=== PATIENT | female | born 1970 | race Caucasian/White ===

== ENCOUNTER 2020-03-09 03:22 | Inpatient (IN) ==
[2020-03-09] MEDS ORDERED: Ketorolac 30 MG/ML VIAL IVP ONE (03:39)
[2020-03-09] MEDS ORDERED: 0.9 % Sodium Chloride 1,000 ML IVC ONE (03:39)
[2020-03-09] MEDS ORDERED: Prochlorperazine 10 MG/2 ML VIAL IVP STA (03:43)
[2020-03-09 03:51] LABS: Basophils % 0.2 %; Eosinophils % 0.2 %; Hematocrit 41.5 % (35.3-44.9); Hemoglobin 12.7 g/dL (11.5-15.4); Immature Granulocytes % 0.2 % (0-4); Lymphocytes % 20.7 %; Mean Corpuscular HGB Conc 30.6 g/dL (31.6-35.5); Mean Corpuscular Hemoglobin 25.2 pg (28.0-33.3); Mean Corpuscular Volume 82.5 fL (83.0-100.0); Mean Platelet Volume 11.8 fL (9.4-12.4); Monocytes # 0.3 K/mcL (0.0-1.3); Monocytes % 6.4 %; Neutrophils # 3.6 K/mcL (1.6-8.9); Platelet Count 186 K/mcL (140-400); Red Blood Count 5.03 M/mcL (3.82-4.97); Segmented Neutrophils % 72.3 %
[2020-03-09 04:00] LABS: INR 1.2; Prothrombin Time 13.2 Seconds (9.4-12.1)
[2020-03-09 04:02] LABS: Activated Partial Thrombo Time 32.5 Seconds (26.0-36.0)
[2020-03-09 04:10] LABS: BUN/Creatinine Ratio 14 (6-26); Blood Urea Nitrogen 11 mg/dL (6-20); Calcium 8.7 mg/dL (8.6-10.3); Carbon Dioxide 27 mEq/L (23-29); Chloride 99 mEq/L (98-107); Glucose 120 mg/dL (70-105); Osmolality,Calculated 281 (280-300); Sodium 135 mEq/L (136-145); eGFR For African Americans > 60 (> 60); eGFR For Non-African Americans > 60 (> 60)
[2020-03-09 04:46] LABS: Troponin I < 0.03 ng/mL (< 0.04)
[2020-03-09] MEDS ORDERED: Azithromycin 500 MG in 0.9 % Sodium Chloride 250 ML IVPB ONE (06:39)
[2020-03-09] MEDS ORDERED: cefTRIAXone 1,000 MG in Water for inj. (sterile) 10 ML IVP ONE (06:39)
[2020-03-09] MEDS ORDERED: Ondansetron 4 MG/2 ML VIAL IVP PRN (07:05)
[2020-03-09] MEDS ORDERED: Naloxone 0.4 MG/ML INJ IVP PRN (07:05)
[2020-03-09] MEDS ORDERED: *HR* Metoprolol 5 MG/5 ML VIAL IVP PRN (08:25)
[2020-03-09] MEDS: lamoTRIgine 25 MG TABLET PO SCH (10:27)
[2020-03-09] MEDS: Ascorbic Acid 500 MG TABLET PO SCH ×2 (10:27→19:51)
[2020-03-09] MEDS: Zinc Sulfate 220 MG CAPSULE PO SCH (10:27)
[2020-03-09] MEDS ORDERED: Famotidine 20 MG/2 ML VIAL IVP SCH (12:21)
[2020-03-09] MEDS: Famotidine 20 MG/2 ML VIAL IVP SCH (13:08)
[2020-03-09] MEDS ORDERED: SUMAtriptan 6 MG/0.5 ML SQ ONE (16:17)
[2020-03-09] MEDS: Temazepam 15 MG CAPSULE PO SCH (19:51)
[2020-03-09] MEDS ORDERED: SUMAtriptan succinate 50 MG TABLET PO ONE (20:18)
[2020-03-09] MEDS: Acetaminophen 325 MG TABLET PO PRN (20:55)
[2020-03-10] MEDS: Famotidine 20 MG/2 ML VIAL IVP SCH ×3 (00:31→23:51)
[2020-03-10] MEDS: *HR* Enoxaparin 40 MG/0.4 ML SYRINGE SQ SCH (04:56)
[2020-03-10] MEDS: Acetaminophen 325 MG TABLET PO PRN ×2 (04:57→11:47)
[2020-03-10 05:17] LABS: Basophils % 0.3 %; Hematocrit 37.8 % (35.3-44.9); Hemoglobin 11.9 g/dL (11.5-15.4); Lymphocytes # 0.8 K/mcL (0.6-4.6); Lymphocytes % 22.2 %; Mean Corpuscular HGB Conc 31.5 g/dL (31.6-35.5); Mean Corpuscular Hemoglobin 25.8 pg (28.0-33.3); Mean Corpuscular Volume 81.8 fL (83.0-100.0); Mean Platelet Volume 11.3 fL (9.4-12.4); Monocytes # 0.3 K/mcL (0.0-1.3); Monocytes % 7.7 %; Neutrophils # 2.6 K/mcL (1.6-8.9); Platelet Count 153 K/mcL (140-400); Red Blood Count 4.62 M/mcL (3.82-4.97); Red Cell Distribution Width 13.6 % (11.5-14.5); Segmented Neutrophils % 69.8 %; White Blood Count 3.8 K/mcL (4.3-11.1)
[2020-03-10 05:24] LABS: BUN/Creatinine Ratio 12 (6-26); Blood Urea Nitrogen 8 mg/dL (6-20); Calcium 8.5 mg/dL (8.6-10.3); Carbon Dioxide 25 mEq/L (23-29); Chloride 102 mEq/L (98-107); Glucose 115 mg/dL (70-105); Osmolality,Calculated 277 (280-300); Potassium 3.8 mEq/L (3.5-5.1); Sodium 134 mEq/L (136-145); eGFR For African Americans > 60 (> 60); eGFR For Non-African Americans > 60 (> 60)
[2020-03-10] MEDS ORDERED: cefTRIAXone 1,000 MG in 0.9 % Sodium Chloride Mini Bag 100 ML IVPB SCH (08:00)
[2020-03-10] MEDS: Ascorbic Acid 500 MG TABLET PO SCH ×2 (08:19→20:46)
[2020-03-10] MEDS: Zinc Sulfate 220 MG CAPSULE PO SCH (08:19)
[2020-03-10] MEDS: Venlafaxine XR (24 HR) 75 MG CAP.ER.24H PO SCH (08:19)
[2020-03-10] MEDS: Bisoprolol/HCTZ 5/6.25 TABLET PO SCH (08:19)
[2020-03-10] MEDS: Azithromycin 500 MG in 0.9 % Sodium Chloride 250 ML IVPB SCH (08:20)
[2020-03-10] MEDS: lamoTRIgine 25 MG TABLET PO SCH (08:20)
[2020-03-10] MEDS ORDERED: Azithromycin 500 MG in 0.9 % Sodium Chloride 250 ML IVPB SCH (09:00)
[2020-03-10] MEDS ORDERED: Isovue-370 500 ML BOTTLE IVP ONE (10:59)
[2020-03-10] MEDS ORDERED: Ketorolac 15 MG/ML VIAL IVP ONE (15:14)
[2020-03-10] MEDS ORDERED: Ibuprofen 800 MG TABLET PO PRN (16:49)
[2020-03-10] MEDS: Temazepam 15 MG CAPSULE PO SCH (20:46)
[2020-03-11] MEDS: *HR* Enoxaparin 40 MG/0.4 ML SYRINGE SQ SCH (05:47)
[2020-03-11 06:20] LABS: Eosinophils % 0.3 %; Hematocrit 38.8 % (35.3-44.9); Hemoglobin 12.1 g/dL (11.5-15.4); Immature Granulocytes % 0.3 % (0-4); Mean Corpuscular HGB Conc 31.2 g/dL (31.6-35.5); Mean Corpuscular Hemoglobin 25.2 pg (28.0-33.3); Mean Corpuscular Volume 80.7 fL (83.0-100.0); Mean Platelet Volume 11.3 fL (9.4-12.4); Monocytes # 0.3 K/mcL (0.0-1.3); Monocytes % 8.5 %; Neutrophils # 2.1 K/mcL (1.6-8.9); Platelet Count 183 K/mcL (140-400); Red Blood Count 4.81 M/mcL (3.82-4.97); Red Cell Distribution Width 13.3 % (11.5-14.5); Segmented Neutrophils % 61.9 %; White Blood Count 3.4 K/mcL (4.3-11.1)
[2020-03-11 06:38] LABS: BUN/Creatinine Ratio 14 (6-26); Blood Urea Nitrogen 8 mg/dL (6-20); Calcium 8.8 mg/dL (8.6-10.3); Carbon Dioxide 27 mEq/L (23-29); Chloride 103 mEq/L (98-107); Glucose 99 mg/dL (70-105); Magnesium 2.1 mg/dL (1.6-2.6); Osmolality,Calculated 286 (280-300); Potassium 3.5 mEq/L (3.5-5.1); Sodium 139 mEq/L (136-145); eGFR For African Americans > 60 (> 60); eGFR For Non-African Americans > 60 (> 60)
[2020-03-11] MEDS: Azithromycin 500 MG in 0.9 % Sodium Chloride 250 ML IVPB SCH (08:00)
[2020-03-11] MEDS: Venlafaxine XR (24 HR) 75 MG CAP.ER.24H PO SCH (08:02)
[2020-03-11] MEDS: Ascorbic Acid 500 MG TABLET PO SCH ×2 (08:02→19:53)
[2020-03-11] MEDS: Zinc Sulfate 220 MG CAPSULE PO SCH (08:02)
[2020-03-11] MEDS: Bisoprolol/HCTZ 5/6.25 TABLET PO SCH (08:02)
[2020-03-11] MEDS: lamoTRIgine 25 MG TABLET PO SCH (08:04)
[2020-03-11] MEDS: Famotidine 20 MG/2 ML VIAL IVP SCH ×2 (08:38→19:54)
[2020-03-11] MEDS: Temazepam 15 MG CAPSULE PO SCH (19:53)
[2020-03-11] MEDS ORDERED: lamoTRIgine 25 MG TABLET PO SCH (21:00)
[2020-03-12] MEDS: *HR* Enoxaparin 40 MG/0.4 ML SYRINGE SQ SCH (05:36)
[2020-03-12 06:14] LABS: Basophils % 0.3 %; Eosinophils % 1.1 %; Hematocrit 39.2 % (35.3-44.9); Hemoglobin 12.2 g/dL (11.5-15.4); Immature Granulocytes % 0.3 % (0-4); Lymphocytes % 28.9 %; Mean Corpuscular HGB Conc 31.1 g/dL (31.6-35.5); Mean Corpuscular Hemoglobin 25.4 pg (28.0-33.3); Mean Corpuscular Volume 81.7 fL (83.0-100.0); Mean Platelet Volume 10.7 fL (9.4-12.4); Monocytes # 0.4 K/mcL (0.0-1.3); Monocytes % 10.6 %; Neutrophils # 2.1 K/mcL (1.6-8.9); Platelet Count 226 K/mcL (140-400); Red Cell Distribution Width 13.2 % (11.5-14.5); Segmented Neutrophils % 58.8 %; White Blood Count 3.6 K/mcL (4.3-11.1)
[2020-03-12 06:30] LABS: BUN/Creatinine Ratio 13 (6-26); Blood Urea Nitrogen 8 mg/dL (6-20); Calcium 9.1 mg/dL (8.6-10.3); Carbon Dioxide 25 mEq/L (23-29); Chloride 104 mEq/L (98-107); Glucose 101 mg/dL (70-105); Magnesium 2.1 mg/dL (1.6-2.6); Osmolality,Calculated 284 (280-300); Potassium 3.7 mEq/L (3.5-5.1); Sodium 138 mEq/L (136-145); eGFR For African Americans > 60 (> 60); eGFR For Non-African Americans > 60 (> 60)
[2020-03-12 08:18] VITALS: BP 138/87
[2020-03-12] MEDS: Ascorbic Acid 500 MG TABLET PO SCH (09:53)
[2020-03-12] MEDS: Venlafaxine XR (24 HR) 75 MG CAP.ER.24H PO SCH (09:53)
[2020-03-12] MEDS: Famotidine 20 MG/2 ML VIAL IVP SCH (09:53)
[2020-03-12] MEDS: Bisoprolol/HCTZ 5/6.25 TABLET PO SCH (09:53)
[2020-03-12] MEDS: Zinc Sulfate 220 MG CAPSULE PO SCH (09:53)
[2020-03-12] MEDS: Azithromycin 500 MG in 0.9 % Sodium Chloride 250 ML IVPB SCH (09:54)
== END 2020-03-12 14:00 | disposition home or self-care (01) | DRG 177 ==
LOC: EMEROOARM 03:22 → 2NENU 03:22 → SUATTDRO 08:08 → 2NENU 08:32
PROVIDERS: ADMIT Family Medicine; ATTEND Pharmacist